=== PATIENT | female | born 2000 | race Caucasian/White ===

== ENCOUNTER 2020-02-18 06:04 | Day surgery (SDC) | payer OTHER ==
[~2020-02-18 06:04] MED LIST: Heparin 5000 UNITS/0.5 ML (HIGH RISK MED) SQ SCH; Lactated Ringers 1,000 ML IV SCH
[2020-02-18] MEDS ORDERED: KEFZOL 1 GM/50 ML PREMIX** 1 GM/50 ML IVPB IV SCH (06:15)
[2020-02-18] MEDS ORDERED: Sensorcaine 0.25% 10 ML ONE (07:54)
[2020-02-18] MEDS ORDERED: Lactated Ringers 1,000 ML IV ONE (07:54)
[2020-02-18 08:01] LABS: Hematocrit 36.3 % (35-47); Hemoglobin 12.2 gm/dl (12.0-16.0); Mean Cell Volume 88.1 fl (78-100); Mean Corpuscular Hemoglobin 29.6 pg (26-32); Mean Corpuscular Hgb Concent. 33.6 g/dl (32-36); Mean Platelet Volume 10.4 fl (7.5-11.0); Platelet Count 245 K/mm3 (150-450); Red Blood Count 4.12 M/mm3 (4.1-5.4); Red Cell Distribution Width 13.6 % (11.5-14.0); White Blood Count 10.8 K/mm3 (4.0-10.5)
[2020-02-18 08:13] LABS: ALBUMIN 3.6 g/dL (3.5-5.0); ALKALINE PHOSPHATASE 63 U/L (38-126); BLOOD UREA NITROGEN 4 mg/dL (7-17); CHLORIDE 106 mmol/L (98-107); Calcium 8.9 mg/dL (8.4-10.2); Carbon Dioxide 24 mmol/L (22-30); Glucose 87 mg/dL (74-106); SGOT/AST 30 U/L (14-36); SGPT/ALT 36 U/L (0-35); SODIUM 137 mmol/L (137-145); Total Protein 6.6 g/dL (6.3-8.2)
[2020-02-18 08:16] LABS: ANION GAP 10.4 MEQ/L (5-15); Potassium 3.4 mmol/L (3.5-5.1)
[2020-02-18] MEDS ORDERED: Zemuron 100 MG/10 ML ONE (08:20)
[2020-02-18] MEDS ORDERED: Quelicin Fliptop 200 MG/10 ML ONE (08:20)
[2020-02-18] MEDS ORDERED: DIPRIVAN 200 MG/20 ML IV ONE (08:20)
[2020-02-18] MEDS ORDERED: SUBLIMAZE 250 MCG/5 ML ONE (08:21)
[2020-02-18] MEDS ORDERED: Zofran 4 MG/2 ML VIAL ONE ×2 (08:28→10:36)
[2020-02-18] MEDS ORDERED: ROBINUL ONE (10:27)
[2020-02-18] MEDS ORDERED: SUBLIMAZE 100 MCG/2 ML ONE (10:42)
[2020-02-18] MEDS ORDERED: DILAUDID 2 MG INJECTION ONE (10:43)
--- NOTE | 2020-02-18 12:03 | XRAY ---
Indication: Evaluate post surgery heart tones. Limited transabdominal early OB ultrasound demonstrates a single viable intrauterine with heart rate 133 BPM.
[2020-02-18] MEDS ORDERED: Compazine 10 MG/2 ML IV ONE (12:07)
[2020-02-18 12:09] VITALS: BP 109/52; PULSE 92; O2SAT 96
[2020-02-18 12:51] LABS: Appearance SLIGHTLY CLOUDY (CLEAR); Bilirubin NEGATIVE (NEGATIVE); Blood NEGATIVE Ery/ul (0-5); Epithelial Cells RARE /HPF (FEW); Glucose NEGATIVE (NEGATIVE); Ketones SMALL (NEGATIVE); Leukocyte Esterase NEGATIVE (NEGATIVE); Mucus SLIGHT /HPF (NEGATIVE); Nitrite NEGATIVE (NEGATIVE); Protein,Urine Dip NEGATIVE (Negative); RBC 0-2 /HPF (0-2); Specific Gravity 1.019 (1.005-1.025); Urobilinogen 2 mg/dL (0-1)
--- NOTE | 2020-02-19 08:07 | OP ---
SURGERY DATE/TIME: 02/18/2020 0856 PREOPERATIVE DIAGNOSIS: Large right ovarian cyst, intrauterine at 17 weeks gestation. POSTOPERATIVE DIAGNOSIS: Large right hydrosalpinx at 17 weeks gestation. PROCEDURE: Laparoscopic right partial salpingectomy, removal of large right hydrosalpinx. SURGEON: Jake Jacobs D.O. C[employer] MOLDING MACHINE OPERATOR: Odette Smith, technology administrator. ANESTHESIA: General. ESTIMATED BLOOD LOSS: Minimal. COMPLICATIONS: None. INDICATIONS: The risks, benefits, indications and alternatives of the procedure were reviewed with the patient prior to the procedure. The patient understood the risk of infection, bleeding, bowel injury, bladder injury, ureteral injury, uterine perforation, loss, pelvic infection and thrombophilia disorder associated with this procedure however desires to have this surgery as a possible need to alleviate her current medical condition. DESCRIPTION OF PROCEDURE AND FINDINGS: At this point the patient is taken to the operating room, placed in the supine position where she was given general anesthesia. She was prepped and draped in the usual sterile fashion. At this point a 5 mm incision was made 2 cm just inferior to the mid clavicular line where a 5 mm trocar and sleeve were advanced under direct visualization where pneumoperitoneum was placed with 4 liters of CO2. An additional incision was made in the left middle quadrant region where a 5 mm incision was made and 5 mm trocar and sleeve were advanced under direct visualization as well. At this point visualization revealed her to have a large approximately 20 x 20 cm cystic mass with no excrescences located on the surface and it also appeared for her to have a normal right ovary. The right fallopian tube identified and appeared that the cyst was coming off of the right fallopian tube. From this point an additional incision was made approximately 6 cm above the umbilicus where a 5 mm trocar and sleeve were advanced under direct visualization. From this point a needle was placed into the cystic mass where approximately 10 cc of fluid was then sent for cytology. After the removal of the fluid the incision was extended and suctioning of the fluid was then taken place removing the entire fluid content and the fluid content appeared to be clear. There were no solid features within this cystic mass. From this point the fimbriated end was followed out to the surface of the cystic mass and then a LigaSure was then introduced and fimbriated end was then brought up and the LigaSure was placed on the mesosalpinx portion where it was lifted and excided and the cystic mass was excised in its entirety without complication and with no bleeding that was noted. Again, the right ovary appeared to be within normal limits as well as the left ovary. From this point all of the features in the abdominal region were visualized to be within normal limits as well as the surface of the liver and all other abdominal contents appeared to be within normal limits with no abnormal lesions that were noted. From this point at the left middle quadrant region where the 5 mm trocar was located at this point it was removed and a 10 mm trocar was then replaced where the EndoBag was then placed through the 10 mm trocar site the cystic portion was placed into the EndoBag and was removed from the 10 mm trocar site without complication where the incision was then extended. From this point after complete removal of the cystic portion there were no other abnormalities that were noted. Irrigation was then taken place and again no bleeding was noted. From this point the 10 mm incision was then closed. The fascial portion was closed with 0 Vicryl suture and the subcutaneous layers were closed with 3-0 Vicryl and the skin was closed with 4-0 Monocryl suture. The remaining three trocars were removed. The CO2 gas was released and the incisions were closed with 4-0 Monocryl suture with subsequent Dermabond. The patient was subsequently taken out of anesthesia and was then taken to the recovery room in stable condition. All instruments and laps were accounted for x2.
== END 2020-02-18 12:25 | disposition home or self-care (01) ==
LOC: SDC 06:04
PROVIDERS: ATTEND Obstetrics & Gynecology
DX: O34.82 Maternal care for other abnormalities of pelvic organs, second trimester (principal); O23.52 Salpingo-oophoritis in pregnancy; N83.201 Unspecified ovarian cyst, right side; Z3A.17 17 weeks gestation of pregnancy
CPT/HCPCS: 36415; 58661; 76815; 80053; 81001; 85027; 87086; 88302; J0330; J0690; J1170; J1644; J2405; J2704; J3010

== ENCOUNTER 2020-07-22 12:09 | Observation (INO) | payer OTHER ==
[2020-07-22 15:00] LABS: Absolute Neutrophil Ct (ANC) 7.96 (1.4-6.9); BASOPHIL % 0.2 % (0.0-0.4); Basophil (Absolute #) 0.02 (0-0.4); Eosinophil % 0.5 % (0.00-5.0); Eosinophil (Absolute #) 0.05 (0-0.5); Hematocrit 35.1 % (35-47); Hemoglobin 11.4 gm/dl (12.0-16.0); Lymphocyte (Absolute #) 2.25 (1.0-4.6); Lymphocytes % 20.6 % (24.0-44.0); Mean Cell Volume 86.9 fl (78-100); Mean Corpuscular Hemoglobin 28.2 pg (26-32); Mean Corpuscular Hgb Concent. 32.5 g/dl (32-36); Mean Platelet Volume 10.2 fl (7.5-11.0); Monocyte (Absolute #) 0.62 (0.0-1.3); Monocytes % 5.7 % (0.0-12.0); Platelet Count 277 K/mm3 (150-450); Red Blood Count 4.04 M/mm3 (4.1-5.4); Red Cell Distribution Width 13.3 % (11.5-14.0); White Blood Count 10.9 K/mm3 (4.0-10.5)
[2020-07-22 18:30] LABS: Amphetamine,Urine NEGATIVE (NEGATIVE); Barbiturate,Urine NEGATIVE (NEGATIVE); Benzodiazepine,Urine NEGATIVE (NEGATIVE); Cocaine,Urine NEGATIVE (NEGATIVE); Methadone,Urine NEGATIVE (NEGATIVE); Opiate,Urine NEGATIVE (NEGATIVE); PCP,Urine NEGATIVE (NEGATIVE); THC,Urine NEGATIVE (NEGATIVE)
[2020-07-22] MEDS ORDERED: Zofran 4 MG/2 ML VIAL IV PRN (22:34)
[2020-07-22] MEDS ORDERED: TYLENOL EXTRA STRENGTH 500 MG PO PRN (22:34)
[2020-07-22] MEDS ORDERED: XYLOCAINE 1% HCL 20 ML MDV IJ PRN (22:34)
[2020-07-23 02:52] VITALS: O2SAT 98
[2020-07-23] MEDS ORDERED: PITOCIN 30 UNITS/ LR 500 ML 30 UNITS/500 ML IV.SOLN. IV SCH ×3 (03:00→13:00)
[2020-07-23] MEDS ORDERED: Lactated Ringers 1,000 ML IV SCH (06:30)
[2020-07-23 12:09] VITALS: BP 119/59; PULSE 73
[2020-07-23] MEDS ORDERED: OB EPIDURAL NAROPIN/SUFENTANIL IN NACL EPIDURAL PRN (12:46)
[2020-07-23] MEDS ORDERED: Lactated Ringers 1,000 ML IV ONE (12:46)
[2020-07-23] MEDS ORDERED: Ephedrine Sulfate 50 MG/ML IV PRN (12:46)
== END 2020-07-23 11:50 | disposition home or self-care (01) ==
LOC: OB 12:32
PROVIDERS: ADMIT Family Medicine; ATTEND Family Medicine
DX: O61.0 Failed medical induction of labor (principal); Z3A.39 39 weeks gestation of pregnancy
CPT/HCPCS: 36415; 80307; 85025; G0378; J2590; A9270-GY

== ENCOUNTER 2020-07-27 10:17 | Observation (INO) | payer OTHER ==
[2020-07-27 10:38] VITALS: BP 120/68; PULSE 70
--- NOTE | 2020-07-27 11:50 | XRAY ---
Indication: Postdates greater than 40 weeks. Ultrasound biophysical profile exam performed. Single viable intrauterine in cephalic presentation with heart rate 187 BPM. Four-quadrant KORINA is 9.5 cm. 2 points given for breathing, movements, tone, and qualitative amniotic fluid volume. Impression: Total biophysical profile score is 8 out of 8.
== END 2020-07-27 12:20 | disposition home or self-care (01) ==
LOC: OB 10:17
PROVIDERS: ADMIT Family Medicine; ATTEND Family Medicine
DX: Z34.03 Encounter for supervision of normal first pregnancy, third trimester (principal); Z3A.40 40 weeks gestation of pregnancy
CPT/HCPCS: 59025; 76818; G0378

== ENCOUNTER 2020-07-30 13:14 | Inpatient (IN) | payer OTHER ==
[2020-07-30] MEDS ORDERED: XYLOCAINE 1% HCL 20 ML MDV IJ PRN (16:02)
[2020-07-30] MEDS ORDERED: PITOCIN 30 UNITS/ LR 500 ML 30 UNITS/500 ML IV.SOLN. IV SCH (16:30)
[2020-07-30 16:33] LABS: Absolute Neutrophil Ct (ANC) 10.05 (1.4-6.9); BASOPHIL % 0.2 % (0.0-0.4); Basophil (Absolute #) 0.02 (0-0.4); Eosinophil % 0.5 % (0.00-5.0); Eosinophil (Absolute #) 0.06 (0-0.5); Hematocrit 34.6 % (35-47); Hemoglobin 11.3 gm/dl (12.0-16.0); Lymphocyte (Absolute #) 2.08 (1.0-4.6); Lymphocytes % 16.2 % (24.0-44.0); Mean Cell Volume 86.3 fl (78-100); Mean Corpuscular Hemoglobin 28.2 pg (26-32); Mean Corpuscular Hgb Concent. 32.7 g/dl (32-36); Mean Platelet Volume 10.6 fl (7.5-11.0); Monocyte (Absolute #) 0.62 (0.0-1.3); Monocytes % 4.8 % (0.0-12.0); Neutrophil % 78.3 % (36.0-66.0); Platelet Count 280 K/mm3 (150-450); Red Blood Count 4.01 M/mm3 (4.1-5.4); Red Cell Distribution Width 13.5 % (11.5-14.0); White Blood Count 12.8 K/mm3 (4.0-10.5)
[2020-07-30] MEDS ORDERED: Ephedrine Sulfate 50 MG/ML IV PRN (16:46)
[2020-07-30] MEDS ORDERED: Lactated Ringers 1,000 ML IV ONE (16:46)
[2020-07-30] MEDS ORDERED: OB EPIDURAL NAROPIN/SUFENTANIL IN NACL EPIDURAL PRN (16:46)
[2020-07-30] MEDS: Lactated Ringers 1,000 ML IV SCH ×2 (18:18→19:19)
[2020-07-30] MEDS ORDERED: Zofran 4 MG/2 ML VIAL IV PRN (18:54)
[2020-07-30 19:41] LABS: Amphetamine,Urine NEGATIVE (NEGATIVE); Barbiturate,Urine NEGATIVE (NEGATIVE); Benzodiazepine,Urine NEGATIVE (NEGATIVE); Cocaine,Urine NEGATIVE (NEGATIVE); Methadone,Urine NEGATIVE (NEGATIVE); Opiate,Urine NEGATIVE (NEGATIVE); PCP,Urine NEGATIVE (NEGATIVE); THC,Urine NEGATIVE (NEGATIVE)
[2020-07-30 20:43] LABS: Appearance CLEAR (CLEAR); Bilirubin NEGATIVE (NEGATIVE); Blood MODERATE Ery/ul (0-5); Glucose NEGATIVE (NEGATIVE); Ketones SMALL (NEGATIVE); Leukocyte Esterase NEGATIVE (NEGATIVE); Mucus SLIGHT /HPF (NEGATIVE); Nitrite NEGATIVE (NEGATIVE); Protein,Urine Dip 30 (Negative); Specific Gravity 1.014 (1.005-1.025); Urobilinogen NEGATIVE mg/dL (0-1); WBC 0-2 /HPF (0-5)
[2020-07-31] MEDS ORDERED: Mylicon 80MG PO PRN (02:50)
[2020-07-31] MEDS ORDERED: Ambien 10 MG PO PRN (02:50)
[2020-07-31] MEDS ORDERED: TYLENOL EXTRA STRENGTH 500 MG PO PRN (02:50)
[2020-07-31] MEDS ORDERED: Anucort-HC SUPPOSITORY PR PRN (02:50)
[2020-07-31] MEDS ORDERED: CORTISONE 1% CREAM TP PRN (02:50)
[2020-07-31] MEDS ORDERED: MOTRIN 400 MG PO PRN (02:50)
[2020-07-31] MEDS ORDERED: LANSINOH 40 GM TOP PRN (02:50)
[2020-07-31] MEDS ORDERED: Dulcolax 10 MG SUPP PR PRN (02:50)
[2020-07-31] MEDS ORDERED: Dermoplast Spray TP PRN (02:50)
[2020-07-31] MEDS ORDERED: NORCO 5/325 MG PO PRN (02:50)
[2020-07-31 06:14] LABS: Absolute Neutrophil Ct (ANC) 12.66 (1.4-6.9); BASOPHIL % 0.1 % (0.0-0.4); Basophil (Absolute #) 0.01 (0-0.4); Eosinophil % 0.2 % (0.00-5.0); Eosinophil (Absolute #) 0.03 (0-0.5); Hematocrit 30.1 % (35-47); Hemoglobin 9.7 gm/dl (12.0-16.0); Lymphocyte (Absolute #) 2.67 (1.0-4.6); Lymphocytes % 16.1 % (24.0-44.0); Mean Cell Volume 87.5 fl (78-100); Mean Corpuscular Hemoglobin 28.2 pg (26-32); Mean Corpuscular Hgb Concent. 32.2 g/dl (32-36); Mean Platelet Volume 10.6 fl (7.5-11.0); Monocyte (Absolute #) 1.26 (0.0-1.3); Monocytes % 7.6 % (0.0-12.0); Platelet Count 249 K/mm3 (150-450); Red Blood Count 3.44 M/mm3 (4.1-5.4); Red Cell Distribution Width 13.5 % (11.5-14.0); White Blood Count 16.6 K/mm3 (4.0-10.5)
[2020-07-31] MEDS: Colace 100 MG PO SCH ×2 (09:58→22:02)
[2020-07-31] MEDS: FERREX 150 PO SCH (09:58)
[2020-08-01] MEDS: FERREX 150 PO SCH (10:11)
[2020-08-01] MEDS: Colace 100 MG PO SCH (10:11)
--- NOTE | 2020-08-01 10:13 | PCM.DS ---
Discharge Summary Date of Admission: 07/30/20 15:52 Admitting Physician: NURIS COOPER Primary Care Provider: NURIS COOPER Allergies Allergies No Known Drug Allergies Allergy (Verified 07/27/20 10:40) Hospital Summary - Hospital Course Hospital Course: patient arrived in spont labor on 07/30, progressed to complete dilation and delivered a viable male with no complications with epidural anesthesia. no repair, has had no pain and mild lochia in the period. kam astfeeding is going well. - Vitals & Intake/Output Vital Signs: Vital Signs Temperature 97.9 F 08/01/20 08:00 Pulse Rate 80 08/01/20 08:00 Respiratory Rate 20 08/01/20 08:00 Blood Pressure 106/56 08/01/20 08:00 O2 Sat by Pulse Oximetry 96 08/01/20 08:00 Intake & Output: Intake & Output 07/29/20 07/30/20 07/31/20 08/01/20 11:59 11:59 11:59 11:59 Intake Total 4942 2500 Output Total 300 Balance 4642 2500 Weight 91.626 kg - Lab Result Diagrams: 07/31/20 06:09 Discharge Exam General Appearance: no apparent distress, alert Neurologic Exam: alert, oriented x 3 Respiratory Exam: normal breath sounds, lungs clear, No respiratory distress Cardiovascular Exam: regular rate/rhythm, normal heart sounds Gastrointestinal/Abdomen Exam: soft, No tenderness, No mass Skin Exam: normal color, warm, dry Final Diagnosis/Problem List - Final Discharge Diagnosis/Problem (1) Normal vaginal delivery Current Visit: Yes Status: Acute Code(s): O80 - ENCOUNTER FOR FULL-TERM UNCOMPLICATED DELIVERY - Discharge Disposition: Home, Self-Care Condition: Stable Prescriptions: Continue Vits W-Ca,Fe,FA(<1Mg) [] 1 each PO DAILY Follow up with: NURIS COOPER [Primary Care Provider] -
[2020-08-01 14:09] VITALS: BP 120/57; PULSE 86; O2SAT 98
== END 2020-08-01 15:00 | disposition home or self-care (01) | DRG 807 ==
LOC: OB 15:52 → OBSVTOIN 15:52
PROVIDERS: ADMIT Family Medicine; ATTEND Family Medicine
PROC: 10E0XZZ Delivery of Products of Conception, External Approach (ICD-10-PCS; principal; 2020-07-30)
DX: O80 Encounter for full-term uncomplicated delivery (principal); Z37.0 Single live birth; Z3A.40 40 weeks gestation of pregnancy
CPT/HCPCS: 36415; 80307; 81001; 85025; G0378; J2590; J2795; A9270-GY

== ENCOUNTER 2021-12-30 11:28 | Emergency (ER) | payer OTHER ==
[2021-12-30 12:16] LABS: Absolute Neutrophil Ct (ANC) 6.49 x10^3/uL (1.4-6.9); Basophil (Absolute #) 0.04 x10^3/uL (0-0.4); Eosinophil % 1.2 % (0.00-5.0); Eosinophil (Absolute #) 0.11 x10^3/uL (0-0.5); Hematocrit 39.5 % (35-47); Hemoglobin 12.5 g/dL (12.0-16.0); Lymphocyte (Absolute #) 2.23 x10^3/uL (1.0-4.6); Lymphocytes % 23.4 % (24.0-44.0); Mean Cell Volume 86.4 fL (78-100); Mean Corpuscular Hemoglobin 27.4 pg (26-32); Mean Corpuscular Hgb Concent. 31.6 g/dL (32-36); Mean Platelet Volume 10.5 fL (7.5-11.0); Monocyte (Absolute #) 0.62 x10^3/uL (0.0-1.3); Monocytes % 6.5 % (0.0-12.0); Neutrophil % 68.3 % (36.0-66.0); Platelet Count 315 x10^3/uL (150-450); Red Blood Count 4.57 x10^6/uL (4.1-5.4); White Blood Count 9.5 x10^3/uL (4.0-10.5)
[2021-12-30] MEDS ORDERED: Sodium Chloride 0.9% 1000 ML 1,000 ML IV STA (12:39)
[2021-12-30] MEDS ORDERED: Sodium Chloride 0.9% 1000 ML 1,000 ML ONE (12:47)
--- NOTE | 2021-12-30 13:00 | ERPHSYRPT ---
- History of Present Illness Time Seen by Provider: 12/30/21 12:04 Source: patient Exam Limitations: no limitations Patient Subjective Stated Complaint: C/O "a little bit of brown when I wipe after I used the bathroom this morning." Patient denies any pain, itching, or cramping. Denies any recent sexual activity. States her OB is Dr. Caro and that she had an ultrasound on 12/24/21 and the results were "normal." States only has the brown discharge whe she wipes and there is not current active discharge in undergarments. Triage Nursing Assessment: Patient ambulated back to ED without difficulties. She is alert and oriented and answering questions appropriately. Physician History: 21 years old 1 para 0 at almost 9 weeks gestation presented in the ER with chief complaint of dark brown discharge when she wiped this morning without any pelvic cramping/pain or urinary symptoms. Patient had ultrasound done last week. Patient called her primary OB and was sent in here for repeat ultrasound as previous ultrasound has some small subchorionic hemorrhage. Patient is asymptomatic currently. Timing/Duration: today, resolved prior to arrival, sudden, improved Activites at Onset: rest Pain Radiation: none Severity of Pain-Max: none Severity of Pain-Current: none Prior abdominal problems: none Sexual intercourse history: non-contributory Modifying Factors: Improves With: nothing Associated Symptoms: vaginal discharge Allergies/Adverse Reactions: No Known Drug Allergies Allergy (Verified 12/30/21 11:37) Home Medications: Vits W-Ca,Fe,FA(<1Mg) [] 1 each PO DAILY 02/18/20 [History] Hx Tetanus, Diphtheria Vaccination/Date Given: Yes Hx Influenza Vaccination/Date Given: No Hx Pneumococcal Vaccination/Date Given: No Travel Risk - International Travel Have you traveled outside of the country in past 3 weeks: No - Coronavirus Screening Are you exhibiting any of the following symptoms?: No Close contact with a COVID-19 positive Pt in past 14-21 Days: No - Vaccine Status Have you recieved a Covid-19 vaccination: No - Review of Systems Constitutional: No Symptoms Eyes: No Symptoms Respiratory: No Symptoms Cardiac: No Symptoms Abdominal/Gastrointestinal: No Symptoms Genitourinary Symptoms: , Vaginal Bleeding Musculoskeletal: No Symptoms Skin: No Symptoms Neurological: No Symptoms Psychological: No Symptoms Endocrine: No Symptoms Hematologic/Lymphatic: No Symptoms Immunological/Allergic: No Symptoms - Past Medical History Pertinent Past Medical History: No Neurological History: No Pertinent History ENT History: No Pertinent History Cardiac History: No Pertinent History Respiratory History: No Pertinent History Endocrine Medical History: No Pertinent History Musculoskeletal History: No Pertinent History GI Medical History: No Pertinent History History: No Pertinent History Psycho-Social History: No Pertinent History Female Reproductive Disorders: Other Other Medical History: Miscarraige - Past Surgical History Past Surgical History: Yes (Cysts removed end december) Neuro Surgical History: No Pertinent History Cardiac: No Pertinent History Respiratory: No Pertinent History Gastrointestinal: No Pertinent History Genitourinary: No Pertinent History Musculoskeletal: No Pertinent History Female Surgical History: Other Other Surgical History: Cyst removed end December 2019 - Social History Smoking Status: Never smoker Exposure to second hand smoke: No Drug Use: none Patient Lives Alone: No - Female History Hx Now: Yes Expected Date of Delivery: 08/02/22 Gestational Age: 9 weeks - Nursing Vital Signs Nursing Vital Signs: Initial Vital Signs Pulse Rate 107 H 12/30/21 11:38 Respiratory Rate 20 12/30/21 11:38 Blood Pressure 139/94 12/30/21 11:38 O2 Sat by Pulse Oximetry 97 12/30/21 11:38 Pain Scale Pain Intensity 0 - Physical Exam General Appearance: no apparent distress, alert Eye Exam: PERRL/EOMI Ears, Nose, Throat Exam: normal ENT inspection Neck Exam: normal inspection, full range of motion Respiratory Exam: normal breath sounds, lungs clear Cardiovascular Exam: regular rate/rhythm, normal heart sounds Gastrointestinal/Abdomen Exam: soft, normal bowel sounds, No tenderness Back Exam: normal inspection, normal range of motion Extremity Exam: normal inspection, normal range of motion Neurologic Exam: alert, oriented x 3, cooperative Skin Exam: normal color SpO2 Interpretation: normal SpO2: 99 O2 Delivery: Room Air Ordered Tests: Active Orders 24 hr Category Date Time Status OB FOLLOW UP PER FETUS [US] Stat Exams 12/30/21 13:00 Completed CBC W DIFF Stat Lab 12/30/21 12:09 Completed CMP Stat Lab 12/30/21 12:38 Completed CULTURE,URINE Stat Lab 12/30/21 11:47 Received HCG QUALITATIVE,SERUM Stat Lab 12/30/21 12:09 Completed UA W/RFX CULTURE Stat Lab 12/30/21 11:47 Completed Medication Summary Discontinued Medications Generic Name Dose Route Start Last Admin Trade Name Colette PRN Reason Stop Dose Admin Sodium Chloride 1,000 mls @ 999 mls/hr 12/30/21 12:39 12/30/21 13:38 Sodium Chloride 0.9% 1000 Ml IV 12/30/21 13:39 999 mls/hr .Q1H1M STA Administration Sodium Chloride Confirm 12/30/21 12:47 Sodium Chloride 0.9% 1000 Ml Administered 12/30/21 12:48 Dose 1,000 mls @ ud .ROUTE .[facility] Lab/Rad Data: Laboratory Result Diagrams 12/30/21 12:09 12/30/21 12:38 Laboratory Results 12/30/21 12/30/21 12/30/21 Range/Units 13:17 12:38 12:09 WBC (4.0-10.5) x10^3/uL RBC (4.1-5.4) x10^6/uL Hgb (12.0-16.0) g/dL Hct (35-47) % MCV (78-100) fL MCH (26-32) pg MCHC (32-36) g/dL RDW (11.5-14.0) % Plt Count (150-450) x10^3/uL MPV (7.5-11.0) fL Gran % (36.0-66.0) % Immature Gran % (Auto) (0.00-0.4) % Nucleat RBC Rel Count (0.00-0.1) % Eos # (Auto) (0-0.5) x10^3/uL Immature Gran # (Auto) (0.00-0.03) x10^3u/L Absolute Lymphs (auto) (1.0-4.6) x10^3/uL Absolute Monos (auto) (0.0-1.3) x10^3/uL Absolute Nucleated RBC (0.00-0.01) x10^3u/L Lymphocytes % (24.0-44.0) % Monocytes % (0.0-12.0) % Eosinophils % (0.00-5.0) % Basophils % (0.0-0.4) % Absolute Granulocytes (1.4-6.9) x10^3/uL Basophils # (0-0.4) x10^3/uL Sodium 137 (137-145) mmol/L Potassium 4.3 (3.5-5.1) mmol/L Chloride 104 (98-107) mmol/L Carbon Dioxide 22 (22-30) mmol/L Anion Gap 15.0 (5-15) MEQ/L BUN 9 (7-17) mg/dL Creatinine 0.57 (0.52-1.04) mg/dL Estimated GFR > 60.0 ML/MIN Glucose 88 (74-106) mg/dL Calcium 9.1 (8.4-10.2) mg/dL Total Bilirubin 0.50 (0.2-1.3) mg/dL AST 24 (14-36) U/L ALT 16 (0-35) U/L Alkaline Phosphatase 79 (38-126) U/L Serum Total Protein 6.9 (6.3-8.2) g/dL Albumin 3.7 (3.5-5.0) g/dL Serum , Qual POSITIVE (Negative) Urinalys Dipstick Clnc Urine Color (YELLOW) Urine Appearance (CLEAR) Urine pH (5-6) Ur Specific Bloomery (1.005-1.025) POC Urine Protein Conf (Negative) Urine Ketones (NEGATIVE) Urine Nitrite (NEGATIVE) Urine Bilirubin (NEGATIVE) Urine Urobilinogen (0-1) mg/dL Urine Leukocytes (NEGATIVE) Urine WBC (Auto) (0-5) /HPF Urine RBC (Auto) (0-2) /HPF U Epithel Cells (Auto) (FEW) /HPF Urine Bacteria (Auto) (NEGATIVE) /HPF Urine RBC (0-5) Simeon/ul Urine Mucus (Auto) (NEGATIVE) /HPF Urine Yeast (Budding) (NEGATIVE) /HPF Ur Culture Indicated? Urine Glucose (NEGATIVE) mg/dL ABO Group O Rh Factor POSITIVE Antibody Screen NEGATIVE (NEGATIVE) 12/30/21 12/30/21 Range/Units 12:09 11:47 WBC 9.5 (4.0-10.5) x10^3/uL RBC 4.57 (4.1-5.4) x10^6/uL Hgb 12.5 (12.0-16.0) g/dL Hct 39.5 (35-47) % MCV 86.4 (78-100) fL MCH 27.4 (26-32) pg MCHC 31.6 L (32-36) g/dL RDW 14.0 (11.5-14.0) % Plt Count 315 (150-450) x10^3/uL MPV 10.5 (7.5-11.0) fL Gran % 68.3 H (36.0-66.0) % Immature Gran % (Auto) 0.2 (0.00-0.4) % Nucleat RBC Rel Count 0.0 (0.00-0.1) % Eos # (Auto) 0.11 (0-0.5) x10^3/uL Immature Gran # (Auto) 0.02 (0.00-0.03) x10^3u/L Absolute Lymphs (auto) 2.23 (1.0-4.6) x10^3/uL Absolute Monos (auto) 0.62 (0.0-1.3) x10^3/uL Absolute Nucleated RBC 0.00 (0.00-0.01) x10^3u/L Lymphocytes % 23.4 L (24.0-44.0) % Monocytes % 6.5 (0.0-12.0) % Eosinophils % 1.2 (0.00-5.0) % Basophils % 0.4 (0.0-0.4) % Absolute Granulocytes 6.49 (1.4-6.9) x10^3/uL Basophils # 0.04 (0-0.4) x10^3/uL Sodium (137-145) mmol/L Potassium (3.5-5.1) mmol/L Chloride (98-107) mmol/L Carbon Dioxide (22-30) mmol/L Anion Gap (5-15) MEQ/L BUN (7-17) mg/dL Creatinine (0.52-1.04) mg/dL Estimated GFR ML/MIN Glucose (74-106) mg/dL Calcium (8.4-10.2) mg/dL Total Bilirubin (0.2-1.3) mg/dL AST (14-36) U/L ALT (0-35) U/L Alkaline Phosphatase (38-126) U/L Serum Total Protein (6.3-8.2) g/dL Albumin (3.5-5.0) g/dL Serum , Qual (Negative) Urinalys Dipstick Clnc MAIN LAB Urine Color YELLOW (YELLOW) Urine Appearance CLEAR (CLEAR) Urine pH 6.5 (5-6) Ur Specific Bloomery 1.025 (1.005-1.025) POC Urine Protein Conf TRACE (Negative) Urine Ketones SMALL-15 (NEGATIVE) Urine Nitrite POSITIVE (NEGATIVE) Urine Bilirubin NEGATIVE (NEGATIVE) Urine Urobilinogen 0.2 (0-1) mg/dL Urine Leukocytes TRACE (NEGATIVE) Urine WBC (Auto) 16-25 (0-5) /HPF Urine RBC (Auto) 51-100 (0-2) /HPF U Epithel Cells (Auto) RARE (FEW) /HPF Urine Bacteria (Auto) RARE (NEGATIVE) /HPF Urine RBC LARGE (0-5) Simeon/ul Urine Mucus (Auto) SLIGHT (NEGATIVE) /HPF Urine Yeast (Budding) Few (NEGATIVE) /HPF Ur Culture Indicated? YES Urine Glucose NEGATIVE (NEGATIVE) mg/dL ABO Group Rh Factor Antibody Screen (NEGATIVE) - Progress Progress: improved Air Movement: good Progress Note: 12/30/21 14:32 21 years old is evaluated for vaginal bleeding. She is given fluid bolus, baseline lab work grossly unremarkable except for UTI and given a dose of Rocephin and will continue with Keflex to go home. Ultrasound showed improvement in subchorionic hemorrhage. Recommended continue pelvic rest, increase hydration and outpatient OB follow-up. Discussed signs symptoms of worsening needing return to ER which she seems understanding. Stable for discharge. Blood Culture(s) Obtained: No Antibiotics given: Yes Counseled pt/family regarding: lab results, diagnosis, need for follow-up, rad results - Departure Departure Disposition: Home Clinical Impression: Vaginal bleeding affecting early , UTI in Condition: Stable Critical Care Time: No Referrals: CHRIS CARO MD [Primary Care Provider] - Follow up/PCP as directed (1-2 days for reevaluation) Instructions: Bleeding in Early (DC), Urinary Tract Infections in Additional Instructions: Drink plenty of fluids to keep yourself well-hydrated. Follow-up with primary OB for reevaluation. Return to ER for worsening bleeding or if having cramping, urinary frequency urgency/burning or hesitancy etc. Prescriptions: Cephalexin Mh 500 mg [Keflex 500 mg] 500 mg PO TID #21 cap
--- NOTE | 2021-12-30 13:12 | XRAY ---
Indication: Bleeding. Two-dimensional early OB ultrasound performed. Comparison: December 24, 2021. Again single intrauterine with mean crown-rump length 2.52 cm corresponding to 9 weeks 2 days. heart rate 169 BPM. Subchorionic hemorrhage is slightly smaller measuring 1.4 x 1.9 x 1.8 cm, previously 1.6 x 1.3 x 2.7 cm. Left and right ovaries are sonographically unremarkable. Impression: Smaller subchorionic hemorrhage compared to US 6 days ago. Again single viable intrauterine patency measuring 9 weeks 2 days with normal progression of .
[2021-12-30 14:03] LABS: Bacteria RARE /HPF (NEGATIVE); Epithelial Cells RARE /HPF (FEW); Mucus SLIGHT /HPF (NEGATIVE); RBC 51-100 /HPF (0-2)
[2021-12-30 14:14] LABS: Appearance CLEAR (CLEAR); Bilirubin NEGATIVE (NEGATIVE); Budding Yeast Few /HPF (NEGATIVE); Glucose NEGATIVE (NEGATIVE); Ketones SMALL-15 (NEGATIVE); Nitrite POSITIVE (NEGATIVE); Ph 6.5 (5-6); Protein,Urine Dip TRACE (Negative); RBC LARGE Ery/ul (0-5); Specific Gravity 1.025 (1.005-1.025); Urobilinogen 0.2 mg/dL (0-1)
[2021-12-30 14:15] LABS: Urine Cultured Indicated? YES
[2021-12-30 14:20] LABS: Dipstick done @ ? MAIN LAB
[2021-12-30 14:22] LABS: ALBUMIN 3.7 g/dL (3.5-5.0); ALKALINE PHOSPHATASE 79 U/L (38-126); BLOOD UREA NITROGEN 9 mg/dL (7-17); CHLORIDE 104 mmol/L (98-107); Calcium 9.1 mg/dL (8.4-10.2); Carbon Dioxide 22 mmol/L (22-30); Creatinine 1 0.57 mg/dL (0.52-1.04); EST GLOMERULAR FILTRATION RATE > 60.0 ML/MIN; Glucose 88 mg/dL (74-106); Potassium 4.3 mmol/L (3.5-5.1); SGOT/AST 24 U/L (14-36); SGPT/ALT 16 U/L (0-35); SODIUM 137 mmol/L (137-145); Total Protein 6.9 g/dL (6.3-8.2)
[2021-12-30 14:29] LABS: ABO TYPING O; Antibody Screen NEGATIVE (NEGATIVE); RH TYPING POSITIVE
[2021-12-30] MEDS ORDERED: ROCEPHIN 1 Gm-D5w 50 ml Bag** 1 G/50 ML IVPB IV STA (14:32)
[2021-12-30] MEDS ORDERED: ROCEPHIN 1 Gm-D5w 50 ml Bag** 1 G/50 ML IVPB IV ONE (14:35)
[2021-12-30 15:01] VITALS: BP 124/69; PULSE 83; O2SAT 100
[2021-12-30 16:02] LABS: CHLAMYDIA DNA NOT DETECTED (NEGATIVE); GC DNA Probe NOT DETECTED (NEGATIVE)
== END 2021-12-30 15:09 | disposition home or self-care (01) ==
LOC: ED 11:28
DX: O20.9 Hemorrhage in early pregnancy, unspecified (principal); O23.41 Unspecified infection of urinary tract in pregnancy, first trimester; N39.0 Urinary tract infection, site not specified; Z3A.08 8 weeks gestation of pregnancy; Z28.310 Unvaccinated for COVID-19
CPT/HCPCS: 36000; 36415; 76816; 80053; 81015; 84703; 85025; 86850; 86900; 86901; 87086; 87491; 87591; 96365; 99284; J0696

== ENCOUNTER 2022-08-03 08:22 | Inpatient (IN) | payer OTHER ==
[2022-08-03] MEDS ORDERED: TYLENOL EXTRA STRENGTH 500 MG PO PRN (09:12)
[2022-08-03] MEDS ORDERED: Lactated Ringers 1,000 ML IV ONE (09:12)
[2022-08-03] MEDS ORDERED: XYLOCAINE 1% HCL 20 ML MDV IJ PRN (09:12)
[2022-08-03] MEDS ORDERED: Zofran 4 MG/2 ML VIAL IV PRN (09:12)
[2022-08-03] MEDS ORDERED: TUCKS TP PRN (09:12)
[2022-08-03] MEDS ORDERED: MOTRIN 400 MG PO PRN (09:12)
[2022-08-03] MEDS ORDERED: Dermoplast Spray TP PRN (09:12)
[2022-08-03] MEDS ORDERED: Ephedrine Sulfate 50 MG/ML IV PRN (09:12)
[2022-08-03] MEDS ORDERED: FENTANYL 2 MCG-BUPIV 0.125%-NS 250 ML Epidur 250 ML EPIDURAL SCH (09:15)
[2022-08-03] MEDS ORDERED: PITOCIN 30 UNITS/ LR 500 ML 30 UNITS/500 ML PLAST..BAG IV SCH (09:30)
[2022-08-03] MEDS: Lactated Ringers 1,000 ML IV SCH ×2 (09:48→12:15)
[2022-08-03 09:55] LABS: Absolute Neutrophil Ct (ANC) 8.84 x10^3/uL (1.4-6.9); Basophil (Absolute #) 0.02 x10^3/uL (0-0.4); Eosinophil % 0.4 % (0.00-5.0); Eosinophil (Absolute #) 0.05 x10^3/uL (0-0.5); Hematocrit 38.4 % (35-47); Hemoglobin 12.7 g/dL (12.0-16.0); Lymphocyte (Absolute #) 2.07 x10^3/uL (1.0-4.6); Lymphocytes % 17.8 % (24.0-44.0); Mean Cell Volume 87.1 fL (78-100); Mean Corpuscular Hemoglobin 28.8 pg (26-32); Mean Corpuscular Hgb Concent. 33.1 g/dL (32-36); Mean Platelet Volume 10.7 fL (7.5-11.0); Monocyte (Absolute #) 0.58 x10^3/uL (0.0-1.3); Neutrophil % 76.2 % (36.0-66.0); Platelet Count 255 x10^3/uL (150-450); Red Blood Count 4.41 x10^6/uL (4.1-5.4); Red Cell Distribution Width 14.2 % (11.5-14.0); White Blood Count 11.6 x10^3/uL (4.0-10.5)
[2022-08-03 10:36] LABS: Amphetamine,Urine NEGATIVE (NEGATIVE); Barbiturate,Urine NEGATIVE (NEGATIVE); Benzodiazepine,Urine NEGATIVE (NEGATIVE); Cocaine,Urine NEGATIVE (NEGATIVE); Methadone,Urine NEGATIVE (NEGATIVE); Opiate,Urine NEGATIVE (NEGATIVE); PCP,Urine NEGATIVE (NEGATIVE); THC,Urine NEGATIVE (NEGATIVE)
[2022-08-03 10:50] LABS: ABO TYPING O; Antibody Screen NEGATIVE (NEGATIVE); RH TYPING POSITIVE
[2022-08-04 05:45] LABS: Absolute Neutrophil Ct (ANC) 8.16 x10^3/uL (1.4-6.9); Basophil (Absolute #) 0.02 x10^3/uL (0-0.4); Eosinophil % 0.6 % (0.00-5.0); Eosinophil (Absolute #) 0.07 x10^3/uL (0-0.5); Hematocrit 32.4 % (35-47); Hemoglobin 10.7 g/dL (12.0-16.0); Lymphocyte (Absolute #) 2.88 x10^3/uL (1.0-4.6); Mean Cell Volume 88.3 fL (78-100); Mean Corpuscular Hemoglobin 29.2 pg (26-32); Monocyte (Absolute #) 0.82 x10^3/uL (0.0-1.3); Monocytes % 6.8 % (0.0-12.0); Platelet Count 226 x10^3/uL (150-450); Red Blood Count 3.67 x10^6/uL (4.1-5.4); Red Cell Distribution Width 14.5 % (11.5-14.0)
[2022-08-04 08:11] LABS: RPR Non Reactive (Non Reactive)
[2022-08-04] MEDS: FERREX 150 PO SCH (09:20)
[2022-08-04] MEDS: Docusate Sodium 100 MG PO SCH (09:21)
[2022-08-04] MEDS ORDERED: Adacel Vial IM ONE (10:00)
[2022-08-04 10:44] LABS: HBsAg Screen Negative (Negative)
[2022-08-04 11:10] LABS: Slide Review 1 YES
[2022-08-04 11:18] LABS: HIV Screen 4th Generation wRfx Non Reactive (Non Reactive)
--- NOTE | 2022-08-05 07:39 | PCM.DS ---
Discharge Summary Date of Admission: 08/03/22 09:36 Admitting Physician: CHRIS CARO Consults: Consults on Case 08/03/22 09:15 Notify Anesthesia Provider PRN 08/03/22 19:49 Navigation ONCE Primary Care Provider: CHRIS CARO Allergies Allergies No Known Drug Allergies Allergy (Verified 12/30/21 11:37) Hospital Summary - Hospital Course Hospital Course: patient arrived in spontaneous labor, had uncomplicated . no complications, well bonded with her male . bottle feeding. - Vitals & Intake/Output Vital Signs: Vital Signs Temperature 98.2 F 08/05/22 02:00 Pulse Rate 76 08/05/22 02:00 Respiratory Rate 20 08/05/22 02:00 Blood Pressure 114/57 08/05/22 02:00 O2 Sat by Pulse Oximetry 97 08/05/22 02:00 Intake & Output: Intake & Output 08/02/22 08/03/22 08/04/22 08/05/22 11:59 11:59 11:59 11:59 Intake Total 1000 3850 500 Output Total 350 800 Balance 650 3050 500 Weight 91.626 kg - Lab Result Diagrams: 08/04/22 05:47 Lab Results-Last 24 Hrs: Lab Results-Last 24 Hours 08/03/22 08/03/22 08/04/22 Range/Units 09:48 09:48 05:47 RPR Non Reactive (Non Reactive) Hep Bs Antigen Negative (Negative) HIV 1&2 Ab/P24 Ag 4thGn Non Reactive (Non Reactive) Slides for Path Review YES Micro Results-Entire Visit: Microbiology 08/03/22 19:47 Urine Culture - Final Catherized MIXED MARIA GUADALUPE; 3 OR MORE TYPES. NO PREDOMINANT ORGANISM. NO FURTHER WORKUP. PLEASE RESUBMIT IF CLINICALLY INDICATED. Discharge Exam General Appearance: no apparent distress Neurologic Exam: alert, oriented x 3 Respiratory Exam: normal breath sounds, lungs clear, No respiratory distress Cardiovascular Exam: regular rate/rhythm, normal heart sounds Gastrointestinal/Abdomen Exam: soft, No tenderness, No mass Extremity Exam: normal inspection, normal range of motion Skin Exam: normal color, warm, dry Final Diagnosis/Problem List - Final Discharge Diagnosis/Problem (1) Normal vaginal delivery Current Visit: No Status: Acute Code(s): O80 - ENCOUNTER FOR FULL-TERM UNCOMPLICATED DELIVERY - Discharge Disposition: Home, Self-Care Condition: Stable Prescriptions: No Action Vits W-Ca,Fe,FA(<1Mg) [] 1 each PO DAILY Ferrous Sulfate, Dried [Iron] 159 mg PO DAILY Follow up with: CHRIS CARO MD [Primary Care Provider] - 6 weeks
[2022-08-05] MEDS: Docusate Sodium 100 MG PO SCH (08:50)
[2022-08-05] MEDS: FERREX 150 PO SCH (08:51)
[2022-08-05 09:10] VITALS: BP 114/67; PULSE 70; O2SAT 96
== END 2022-08-05 13:00 | disposition home or self-care (01) | DRG 807 ==
LOC: OB 08:22 → OBSVTOIN 09:36
PROVIDERS: ADMIT Family Medicine; ATTEND Family Medicine
PROC: 10E0XZZ Delivery of Products of Conception, External Approach (ICD-10-PCS; principal; 2022-08-03)
DX: O80 Encounter for full-term uncomplicated delivery (principal); Z37.0 Single live birth; Z3A.40 40 weeks gestation of pregnancy; Z20.828 Contact with and (suspected) exposure to other viral communicable diseases
CPT/HCPCS: 36415; 80307; 85025; 86592; 86850; 86900; 86901; 87086; 87340; 87389; 90471; 90715; J2405; J2590; A9270-GY

== ENCOUNTER 2023-08-25 10:10 | Observation (INO) | payer OTHER ==
[2023-08-25] MEDS ORDERED: miSOPROStoL RC ONE (10:11)
[2023-08-25 10:22] LABS: Appearance Clear (Clear); Bacteria None Seen /HPF (None Seen); Bilirubin Negative (Negative); Blood Negative (Negative); Epithelial Cells Few /HPF (None Seen); Glucose, Urine Negative (Negative); Hyaline Casts NONE SEEN /LPF (0-2); Ketones Negative (Negative); Leukocyte Esterase Small (Negative); Nitrite Negative (Negative); Ph 6.5 (4.6-8.0); Protein,Urine Dip Negative (Negative); RBC 0-2 /HPF (0-5); Specific Gravity 1.015 (1.005-1.030); Urobilinogen 0.2 mg/dL (0.2)
[2023-08-25 10:25] LABS: ADD URINE CULTURE? YES (NO)
[2023-08-25] MEDS ORDERED: Lactated Ringers 1,000 ML IV SCH ×2 (10:30→17:00)
[2023-08-25] MEDS ORDERED: XYLOCAINE 1% HCL 20 ML MDV ONE (10:39)
[2023-08-25] MEDS ORDERED: Lactated Ringers 1,000 ML IV ONE ×2 (10:44→13:24)
[2023-08-25] MEDS ORDERED: SODIUM CHLORIDE 0.9% IV SCH (11:00)
[2023-08-25] MEDS ORDERED: VIBRAMYCIN IV SCH (11:00)
[2023-08-25 11:20] LABS: Hemoglobin 12.4 g/dL (12.0-16.0); Mean Cell Volume 87.6 fL (78-100); Mean Corpuscular Hemoglobin 28.6 pg (26-32); Mean Corpuscular Hgb Concent. 32.6 g/dL (32-36); Mean Platelet Volume 10.5 fL (7.5-11.0); Platelet Count 282 x10^3/uL (150-450); Red Blood Count 4.34 x10^6/uL (4.1-5.4); Red Cell Distribution Width 13.6 % (11.5-14.0); White Blood Count 6.3 x10^3/uL (4.0-10.5)
[2023-08-25] MEDS ORDERED: Versed 2 MG/2 ML Injection ONE (12:02)
[2023-08-25] MEDS ORDERED: SUBLIMAZE 100 MCG/2 ML ONE ×2 (12:02→12:39)
[2023-08-25] MEDS ORDERED: DIPRIVAN 200 MG/20 ML IV ONE (12:02)
[2023-08-25] MEDS ORDERED: Quelicin Fliptop 200 MG/10 ML ONE (12:02)
[2023-08-25] MEDS ORDERED: Zemuron 100 MG/10 ML ONE (12:18)
[2023-08-25] MEDS ORDERED: TORAdol 30 mg Injection ONE (12:24)
[2023-08-25] MEDS ORDERED: BRIDION 200MG/2ML IV ONE (12:24)
[2023-08-25] MEDS ORDERED: PHENYLEPHRINE HCL ONE (12:42)
[2023-08-25] MEDS ORDERED: Ephedrine Sulfate 50 MG/ML ONE (13:11)
[2023-08-25] MEDS ORDERED: Zofran 4 MG/2 ML VIAL ONE (13:40)
--- NOTE | 2023-08-25 13:46 | OP ---
OB OP NOTE - OPERATIVE NOTE Surgery Date: 08/25/23 Surgery Time: 12:10 PREOPERATIVE DIAGNOSIS: Missed at 13 6/7wks POST OPERATIVE DIAGNOSIS: Missed at 13 6/7wks Procedure: Suction dilation and evacuation under ultrasound guidance, paracervical block Surgeon: TEDDY DEL ANGEL ANESTHESIA: General ESTIMATED BLOOD LOSS: 900ml CONDITION: Good COMPLICATIONS: none SPECIMEN: uterine contents HISTORY - HISTORY HISTORY: HISTORY: FINDINGS - FINDINGS FINDINGS: FINDINGS: Missed again confirmed with US prior to initiation of procedure. Uterine contents evacuated requiring combination of size 13 suction curette, large curettage, and ring forceps for evacuation all of which was done under ultrasound guidance. Endometrial stripe appeared empty at end of case. Given methergine 0.2mg IM near the end and cytotec 800mcg LA at end of case. Labs drawn for Hct at end of case as well. DESCRIPTION OF PROCEDURE - DESCRIPTION OF PROCEDURE DESCRIPTION OF PROCEDURE: DESCRIPTION OF PROCEDURE: Pt was taken to the operating room and placed under general anesthesia. Time out performed. Sterile speculum placed and anterior lip of cervix grasped with single tooth tenaculum. Paracervical block achieved with 10ml 1% lidocaine plain at 4 sites around the cervical clock-face. Cervix was then dilated to allow passage of a suction curette. Curette pressure was tested, then advanced to the uterine fundus with products of conception evacuated. Sharp curettage was alternated with suction curettage and ring forcep used as well to aid in evacuation of tissue, all under ultrasound guidance, until a gritty texture was noted. Tenaculum was changed out to a ring forcep during case to aid in cervical manipulation. Ring forcep was removed from anterior lip of cervix and sites noted to be hemostatic. Sponge, lap, and needle counts correct x2. Pt tolerated procedure well and was taken to the recovery room in good condition.
[2023-08-25] MEDS ORDERED: NORCO 5/325 MG PO PRN (13:50)
[2023-08-25 13:57] LABS: ABO TYPING O; Antibody Screen NEGATIVE (NEGATIVE); RH TYPING POSITIVE
[2023-08-25] MEDS ORDERED: Dextrose 5%-Lr IV Solution 1000 ML 1,000 ML IV SCH (14:00)
[2023-08-25 14:10] LABS: Hematocrit 31.9 % (35-47); Hemoglobin 10.3 g/dL (12.0-16.0); Mean Cell Volume 90.6 fL (78-100); Mean Corpuscular Hemoglobin 29.3 pg (26-32); Mean Corpuscular Hgb Concent. 32.3 g/dL (32-36); Mean Platelet Volume 10.7 fL (7.5-11.0); Platelet Count 217 x10^3/uL (150-450); Red Blood Count 3.52 x10^6/uL (4.1-5.4); Red Cell Distribution Width 13.9 % (11.5-14.0); White Blood Count 5.8 x10^3/uL (4.0-10.5)
[2023-08-25] MEDS ORDERED: Zofran 4 MG/2 ML VIAL IV PRN (16:56)
[2023-08-25] MEDS ORDERED: TORAdol 30 mg Injection IV PRN (19:00)
[2023-08-25] MEDS ORDERED: Methergine IM SCH (19:00)
[2023-08-26 05:38] LABS: Hemoglobin 7.5 g/dL (12.0-16.0); Mean Cell Volume 88.8 fL (78-100); Mean Corpuscular Hgb Concent. 32.6 g/dL (32-36); Mean Platelet Volume 10.2 fL (7.5-11.0); Platelet Count 194 x10^3/uL (150-450); Red Blood Count 2.59 x10^6/uL (4.1-5.4); Red Cell Distribution Width 14.2 % (11.5-14.0); White Blood Count 7.5 x10^3/uL (4.0-10.5)
--- NOTE | 2023-08-26 09:11 | PCM.DS ---
Discharge Summary Date of Admission: 08/25/23 15:15 Date of Discharge: 08/26/23 Admitting Physician: TEDDY DEL ANGEL MD Primary Care Provider: CHRIS CARO Allergies Allergies No Known Drug Allergies Allergy (Verified 08/25/23 10:15) Hospital Summary - Hospital Course Hospital Course: Admitted for D&E with paracervical block with postop observation recommended due to blood loss intraoperatively. Did well overnight and acute blood loss proved to be stable with minimal ongoing bleeding and pt remained asymptomatic. Discharged to home on POD1 after meeting criteria and with instructions on meds and follow as well as bleeding precautions. - Vitals & Intake/Output Vital Signs: Vital Signs Temperature 98.2 F 08/26/23 04:00 Pulse Rate 77 08/26/23 04:00 Respiratory Rate 20 08/26/23 04:00 Blood Pressure 105/52 08/26/23 04:00 O2 Sat by Pulse Oximetry 98 08/26/23 04:00 Intake & Output: Intake & Output 08/23/23 08/24/23 08/25/23 08/26/23 11:59 11:59 11:59 11:59 Intake Total 3156 Balance 3156 Weight 90.1 kg - Lab Result Diagrams: 08/26/23 05:35 Lab Results-Last 24 Hrs: Lab Results-Last 24 Hours 08/25/23 08/25/23 08/25/23 Range/Units 10:16 10:17 11:17 WBC 6.3 (4.0-10.5) x10^3/uL RBC 4.34 (4.1-5.4) x10^6/uL Hgb 12.4 (12.0-16.0) g/dL Hct 38.0 (35-47) % MCV 87.6 (78-100) fL MCH 28.6 (26-32) pg MCHC 32.6 (32-36) g/dL RDW 13.6 (11.5-14.0) % Plt Count 282 (150-450) x10^3/uL MPV 10.5 (7.5-11.0) fL Urine Color Yellow (Yellow) Urine Appearance Clear (Clear) Urine pH 6.5 (4.6-8.0) Ur Specific [place] 1.015 (1.005-1.030) Urine Protein Negative (Negative) Urine Glucose (UA) Negative (Negative) mg/dL Urine Ketones Negative (Negative) Urine Blood Negative (Negative) Urine Nitrite Negative (Negative) Urine Bilirubin Negative (Negative) Urine Urobilinogen 0.2 (0.2) mg/dL Ur Leukocyte Esterase Small A (Negative) U Hyaline Cast (Auto) NONE SEEN (0-2) /LPF Urine Microscopic RBC 0-2 (0-5) /HPF Urine Microscopic WBC 11-20 A (0-5) /HPF Ur Epithelial Cells Few (None Seen) /HPF Urine Bacteria None Seen (None Seen) /HPF Urine Culture Reflexed YES (NO) ABO Group O Rh Factor POSITIVE Antibody Screen NEGATIVE (NEGATIVE) 08/25/23 08/26/23 Range/Units 13:47 05:35 WBC 5.8 7.5 (4.0-10.5) x10^3/uL RBC 3.52 L 2.59 L (4.1-5.4) x10^6/uL Hgb 10.3 L 7.5 L D (12.0-16.0) g/dL Hct 31.9 L 23.0 L (35-47) % MCV 90.6 88.8 (78-100) fL MCH 29.3 29.0 (26-32) pg MCHC 32.3 32.6 (32-36) g/dL RDW 13.9 14.2 H (11.5-14.0) % Plt Count 217 194 (150-450) x10^3/uL MPV 10.7 10.2 (7.5-11.0) fL Urine Color (Yellow) Urine Appearance (Clear) Urine pH (4.6-8.0) Ur Specific [place] (1.005-1.030) Urine Protein (Negative) Urine Glucose (UA) (Negative) mg/dL Urine Ketones (Negative) Urine Blood (Negative) Urine Nitrite (Negative) Urine Bilirubin (Negative) Urine Urobilinogen (0.2) mg/dL Ur Leukocyte Esterase (Negative) U Hyaline Cast (Auto) (0-2) /LPF Urine Microscopic RBC (0-5) /HPF Urine Microscopic WBC (0-5) /HPF Ur Epithelial Cells (None Seen) /HPF Urine Bacteria (None Seen) /HPF Urine Culture Reflexed (NO) ABO Group Rh Factor Antibody Screen (NEGATIVE) Final Diagnosis/Problem List - Final Discharge Diagnosis/Problem (1) Missed Current Visit: Yes Status: Acute Code(s): O02.1 - MISSED - Discharge Disposition: Home, Self-Care Condition: Good Prescriptions: New Ferrous Sulfate 325 mg [Feosol 325 mg] 325 mg PO DAILY #30 tablet Ibuprofen [IBUPROFEN 400 MG TABLET] 2 tablet PO Q8H PRN PRN #30 tablet PRN Reason: Pain Acetaminophen 500 mg [Tylenol Extra Strength 500 mg] 1,000 mg PO Q6H PRN PRN #40 tablet PRN Reason: Pain Continue Vits W-Ca,Fe,FA(<1Mg) [] 1 each PO DAILY Instructions: Dilation and Curettage (DC) Additional Instructions: Return to ER for fever over 101, pain not relieved by medications, or bleeding more than a pad per hour. Follow up with: CHRIS CARO MD [Primary Care Provider] -
[2023-08-26 10:20] VITALS: BP 103/55; PULSE 94; RESP 16; TEMP 97.8; O2SAT 99
== END 2023-08-26 11:38 | disposition home or self-care (01) ==
LOC: SDC 10:10 → MED SURG 15:15
PROVIDERS: ADMIT Obstetrics & Gynecology; ATTEND Obstetrics & Gynecology
DX: O02.1 Missed abortion (principal); N99.61 Intraoperative hemorrhage and hematoma of a genitourinary system organ or structure complicating a genitourinary system procedure; Z20.828 Contact with and (suspected) exposure to other viral communicable diseases
CPT/HCPCS: 36415; 59820; 81001; 85027; 86850; 86900; 86901; 87086; G0378; J0330; J1330; J1885; J2250; J2371; J2405; J2704; J3010

== ENCOUNTER 2024-06-30 07:37 | Inpatient (IN) | payer OTHER ==
[2024-06-30 18:15] LABS: Absolute Neutrophil Ct (ANC) 5.76 x10^3/uL (1.56-6.13); BASOPHIL % 0.2 % (0.1-1.2); Basophil (Absolute #) 0.02 x10^3/uL (0.01-0.08); Eosinophil % 0.9 % (0.7-5.8); Eosinophil (Absolute #) 0.08 x10^3/uL (0.04-0.36); Hemoglobin 12.6 g/dL (11.2-15.7); IMMATURE GRAN # 0.03 x10^3u/L (0.001-0.031); IMMATURE GRAN % 0.3 % (0.001-0.429); Lymphocyte (Absolute #) 2.11 x10^3/uL (1.18-3.74); Lymphocytes % 24.5 % (19.3-51.7); Mean Cell Volume 84.4 fL (79.4-94.8); Mean Corpuscular Hgb Concent. 33.2 g/dL (32.2-35.5); Mean Platelet Volume 10.6 fL (9.4-12.3); Neutrophil % 67.1 % (34.0-71.1); Platelet Count 225 x10^3/uL (182-369); Red Cell Distribution Width 16.5 % (11.7-14.4); White Blood Count 8.6 x10^3/uL (3.98-10.04)
[2024-06-30] MEDS: CYTOTEC PO SCH (19:30)
[2024-06-30 19:44] LABS: Amphetamine,Urine NEGATIVE (NEGATIVE); Barbiturate,Urine NEGATIVE (NEGATIVE); Benzodiazepine,Urine NEGATIVE (NEGATIVE); Cocaine,Urine NEGATIVE (NEGATIVE); Methadone,Urine NEGATIVE (NEGATIVE); Opiate,Urine NEGATIVE (NEGATIVE); PCP,Urine NEGATIVE (NEGATIVE); THC,Urine NEGATIVE (NEGATIVE)
[2024-06-30 20:40] LABS: ABO TYPING O; Antibody Screen NEGATIVE (NEGATIVE); RH TYPING POSITIVE
[2024-07-01] MEDS: Lactated Ringers 1,000 ML IV SCH
[2024-07-01] MEDS: Lactated Ringers 1,000 ML IV ONE (00:38)
[2024-07-01] MEDS: FENTANYL 2 MCG-BUPIV 0.125%-NS 250 ML Epidur 250 ML EPIDURAL SCH (01:30)
[2024-07-01 03:14] LABS: Appearance Clear (Clear); Bacteria None Seen /HPF (None Seen); Bilirubin Negative (Negative); Blood Negative (Negative); Epithelial Cells None Seen /HPF (None Seen); Glucose, Urine Negative (Negative); Hyaline Casts NONE SEEN /LPF (0-2); Ketones 40 (Negative); Leukocyte Esterase Negative (Negative); Nitrite Negative (Negative); Ph 6.5 (4.6-8.0); Protein,Urine Dip Negative (Negative); RBC 0-2 /HPF (0-5); Specific Gravity <=1.005 (1.005-1.030); Urobilinogen 0.2 mg/dL (0.2)
[2024-07-01] MEDS: Ephedrine Sulfate 50 MG/ML IV PRN (05:50)
[2024-07-01] MEDS: Zofran 4 MG/2 ML VIAL IV PRN (05:54)
[2024-07-01] MEDS: PITOCIN 30 UNITS/ LR 500 ML 30 UNITS/500 ML PLAST..BAG IV SCH (07:20)
[2024-07-01] MEDS ORDERED: Dulcolax 10 MG SUPP PR PRN (12:00)
[2024-07-01] MEDS ORDERED: LANSINOH 40 GM TOP PRN (12:00)
[2024-07-01] MEDS ORDERED: CORTISONE 1% CREAM TP PRN (12:00)
[2024-07-01] MEDS ORDERED: Anucort-HC SUPPOSITORY PR PRN (12:00)
[2024-07-01] MEDS ORDERED: PITOCIN 30 UNITS/ LR 500 ML 30 UNITS/500 ML PLAST..BAG IV SCH (12:00)
[2024-07-01] MEDS ORDERED: MOTRIN 400 MG PO PRN (12:00)
[2024-07-01] MEDS ORDERED: TUCKS TP PRN (12:26)
[2024-07-01] MEDS: Dermoplast Spray TP PRN (12:26)
[2024-07-01 17:14] VITALS: RESP 18
[2024-07-01] MEDS: FERREX 150 PO SCH (23:59)
[2024-07-01] MEDS: Docusate Sodium 100 MG PO SCH (23:59)
[2024-07-02 03:22] VITALS: TEMP 97.8
[2024-07-02 04:30] LABS: Absolute Neutrophil Ct (ANC) 6.23 x10^3/uL (1.56-6.13); BASOPHIL % 0.2 % (0.1-1.2); Basophil (Absolute #) 0.02 x10^3/uL (0.01-0.08); Eosinophil % 0.9 % (0.7-5.8); Eosinophil (Absolute #) 0.09 x10^3/uL (0.04-0.36); Hematocrit 32.9 % (34.1-44.9); Hemoglobin 11.1 g/dL (11.2-15.7); IMMATURE GRAN # 0.03 x10^3u/L (0.001-0.031); IMMATURE GRAN % 0.3 % (0.001-0.429); Lymphocyte (Absolute #) 2.65 x10^3/uL (1.18-3.74); Lymphocytes % 27.3 % (19.3-51.7); Mean Corpuscular Hemoglobin 28.7 pg (25.6-32.2); Mean Corpuscular Hgb Concent. 33.7 g/dL (32.2-35.5); Mean Platelet Volume 11.6 fL (9.4-12.3); Monocyte (Absolute #) 0.67 x10^3/uL (0.24-0.86); Monocytes % 6.9 % (4.7-12.5); Neutrophil % 64.4 % (34.0-71.1); Platelet Count 221 x10^3/uL (182-369); Red Blood Count 3.87 x10^6/uL (3.93-5.22); Red Cell Distribution Width 16.7 % (11.7-14.4); White Blood Count 9.7 x10^3/uL (3.98-10.04)
[2024-07-02 07:22] LABS: RPR Non Reactive (Non Reactive)
[2024-07-02 07:48] VITALS: O2SAT 98
[2024-07-02] MEDS: TYLENOL EXTRA STRENGTH 500 MG PO PRN (09:41)
--- NOTE | 2024-07-02 10:40 | PCM.DS ---
Discharge Summary Date of Admission: 07/01/24 08:34 Admitting Physician: CHRIS CARO Consults: Consults on Case 07/01/24 16:58 Navigation ONCE Primary Care Provider: CHRIS CARO Allergies Allergies No Known Drug Allergies Allergy (Verified 08/25/23 10:15) Hospital Summary - Hospital Course Hospital Course: patient induced on 07/01/2024 and had an uncomplicated vaginal delivery. she has mild lochia and no pain , doing great at this time - Vitals & Intake/Output Vital Signs: Vital Signs Temperature 97.8 F 07/02/24 07:47 Pulse Rate 65 07/02/24 07:47 Respiratory Rate 18 07/02/24 07:47 Blood Pressure 96/62 07/02/24 07:47 O2 Sat by Pulse Oximetry 98 07/02/24 07:47 Intake & Output: Intake & Output 06/29/24 06/30/24 07/01/24 07/02/24 11:59 11:59 11:59 11:59 Intake Total 77147 1600 Output Total 2019 Balance 85810 1600 Weight 95.254 kg - Lab Result Diagrams: 07/02/24 04:03 Lab Results-Last 24 Hrs: Lab Results-Last 24 Hours 06/30/24 07/02/24 Range/Units 18:13 04:03 WBC 9.7 (3.98-10.04) x10^3/uL RBC 3.87 L (3.93-5.22) x10^6/uL Hgb 11.1 L (11.2-15.7) g/dL Hct 32.9 L (34.1-44.9) % MCV 85.0 (79.4-94.8) fL MCH 28.7 (25.6-32.2) pg MCHC 33.7 (32.2-35.5) g/dL RDW 16.7 H (11.7-14.4) % Plt Count 221 (182-369) x10^3/uL MPV 11.6 (9.4-12.3) fL Gran % 64.4 (34.0-71.1) % Immature Gran % (Auto) 0.3 (0.001-0.429) % Nucleat RBC Rel Count 0.0 (0.00-0.2) % Eos # (Auto) 0.09 (0.04-0.36) x10^3/uL Immature Gran # (Auto) 0.03 (0.001-0.031) x10^3u/L Absolute Lymphs (auto) 2.65 (1.18-3.74) x10^3/uL Absolute Monos (auto) 0.67 (0.24-0.86) x10^3/uL Absolute Nucleated RBC 0.00 (0.00-0.012) x10^3u/L Lymphocytes % 27.3 (19.3-51.7) % Monocytes % 6.9 (4.7-12.5) % Eosinophils % 0.9 (0.7-5.8) % Basophils % 0.2 (0.1-1.2) % Absolute Granulocytes 6.23 H (1.56-6.13) x10^3/uL Basophils # 0.02 (0.01-0.08) x10^3/uL RPR Non Reactive (Non Reactive) Micro Results-Entire Visit: Microbiology 07/01/24 03:00 Urine Culture - Final Urine, Indwelling Catheter NO GROWTH Discharge Exam General Appearance: no apparent distress Neurologic Exam: alert, oriented x 3 Respiratory Exam: normal breath sounds, lungs clear, No respiratory distress Cardiovascular Exam: regular rate/rhythm, normal heart sounds Gastrointestinal/Abdomen Exam: soft, No tenderness, No mass Extremity Exam: normal inspection, normal range of motion Skin Exam: normal color, warm, dry Final Diagnosis/Problem List - Final Discharge Diagnosis/Problem (1) Normal vaginal delivery Current Visit: No Status: Acute Code(s): O80 - ENCOUNTER FOR FULL-TERM UNCOMPLICATED DELIVERY - Discharge Disposition: Home, Self-Care Condition: Stable Prescriptions: Continue Vits W-Ca,Fe,FA(<1Mg) [] 1 each PO DAILY Ibuprofen [IBUPROFEN 400 MG TABLET] 2 tablet PO Q8H PRN PRN #30 tablet PRN Reason: Pain Acetaminophen 500 mg [Tylenol Extra Strength 500 mg] 1,000 mg PO Q6H PRN PRN #40 tablet PRN Reason: Pain Discontinued Ferrous Sulfate 325 mg [Feosol 325 mg] 325 mg PO DAILY #30 tablet Follow up with: CHRIS CARO MD [Primary Care Provider] - 6 weeks
[2024-07-02] MEDS ORDERED: Mylicon 80MG PO PRN (12:00)
[2024-07-02 16:51] VITALS: BP 140/85; PULSE 71
== END 2024-07-02 15:40 | disposition home or self-care (01) | DRG 807 ==
LOC: OB 08:34 → OBSVTOIN 07-01 08:34
PROVIDERS: ADMIT Family Medicine; ATTEND Family Medicine
PROC: 10E0XZZ Delivery of Products of Conception, External Approach (ICD-10-PCS; principal; 2024-07-01)
DX: O80 Encounter for full-term uncomplicated delivery (principal); Z37.0 Single live birth; Z3A.39 39 weeks gestation of pregnancy
CPT/HCPCS: 36415; 80307; 81001; 85025; 86592; 86850; 86900; 86901; 87086; G0378; G0379; J2405; J2590; A9270-GY